=== PATIENT | female | born 1970 | race Caucasian/White ===

== ENCOUNTER 2017-05-26 08:18 | Emergency (ER) | payer BC ==
[2017-05-26] MEDS ORDERED: Ketorolac Tromethamine 30 MG/ML VIAL ONE (09:31)
[2017-05-26] MEDS ORDERED: Ondansetron HCl/PF 4 MG/2 ML Vial ONE (09:31)
[2017-05-26 09:49] LABS: ALT (SGPT) 29 U/L (8-55); AST (SGOT) 25 U/L (5-34); Albumin 4.2 g/dL (3.5-5.0); Alkaline Phosphatase 74 U/L (40-150); Anion Gap 16 mmol/L (10-20); BUN (Urea Nitrogen) 9 mg/dL (7.0-18.7); Bilirubin, Total 0.5 mg/dL (0.2-1.2); Calc. Creatinine Clearance 0 mL/min (70-130); Calcium 9.2 mg/dL (7.8-10.44); Carbon Dioxide 19 mmol/L (22-29); Chloride 112 mmol/L (98-107); Estimated GFR-MDRD 82; Globulin 3.1 g/dL (2.4-3.5); Glucose 94 mg/dL (70-105); Lipase 22 U/L (8-78); Potassium 4.2 mmol/L (3.5-5.1); Protein, Total 7.3 g/dL (6.0-8.3); Sodium 143 mmol/L (136-145)
[2017-05-26 09:50] LABS: Bilirubin Negative (Negative); Blood, Urine Trace (Negative); Clarity Clear (Clear); Glucose, Urine (Dipstick) Negative (Negative); Leukocyte Negative (Negative); Nitrite Negative (Negative); Protein, Urine (Dipstick) Negative (Neg-Trace); Urobilinogen 0.2 mg/dL (0.2-1.0)
[2017-05-26 09:55] LABS: Specific Gravity, Urine 1.001 (1.002-1.036)
[2017-05-26 09:57] LABS: White Blood Cell (WBC) Count 12.1 thou/uL (4.8-10.8)
[2017-05-26 09:58] LABS: #Basophils 0.1 thou/uL (0.0-0.2); #Eosinphils 0.2 thou/uL (0.0-0.7); #Lymphocytes 2.1 thou/uL (1.20-3.40); #Monocytes 0.7 thou/uL (0.11-0.59); #Neutrophils 9.1 thou/uL (1.40-6.50); %Basophils 0.6 % (0.0-1.0); %Eosinophils 1.3 % (0.0-10.0); %Lymphocytes 17.3 % (21.0-51.0); %Monocytes 5.5 % (0.0-10.0); %Neutrophils 75.4 % (42.0-75.0); Hemoglobin 13.9 g/dL (12.0-16.0); Mean Corpuscular Hemoglobin 31.1 pg (27.0-31.0); Mean Corpuscular Volume 91.4 fL (81.0-99.0); Mean Platelet Volume 8.5 fL (7.4-10.4); Platelet Count 255 thou/uL (130-400); RBC Distribution Width 11.8 % (11.5-14.5); Red Blood Cell (RBC) Count 4.48 mill/uL (4.20-5.40)
[2017-05-26 10:01] LABS: Bacteria/HPF Rare-Few HPF (None Seen); RBC/HPF 0-3 HPF (0-3); WBC/HPF 0-3 HPF (0-3)
--- NOTE | 2017-05-26 12:52 | CT ---
CT ABDOMEN AND PELVIS WITHOUT CONTRAST: Multiple axial tomograms were obtained through the abdomen and pelvis without IV enhancement. Oral c ontrast was not given. HISTORY: Right flank pain. FINDINGS: Lung bases are clear. Liver, spleen, and pancreas appear unremarkable. The patient is post cholecystectomy. Adrenal glands are normal. Review of the kidneys reveals a 3-4 mm calculus at the right UVJ producing mild right obstructive dale nge. There are at least 2 small nonobstructing calculi in the lower pole collecting structures of the righ t kidney measuring up to 3 mm. No left side calculi identified. Bladder is distended and unremarkab le. Small bowel loops appear normal. Appendix appears normal. Scattered diverticula in the left colon. No evidence of diverticulitis. No adenopathy. IMPRESSION: 1. A 3-4 mm calculus at the right ureterovesical junction producing mild right hydronephrosis. 2. Nonobstructing calculi in the lower pole collecting structures of the right kidney. POS: [facility]
[2017-05-26] MEDS ORDERED: Sodium Chloride 0.9% 1,000 ML BAG ONE (14:19)
== END 2017-05-26 11:44 | disposition home or self-care (01) ==
LOC: MADERS 08:18
DX: N13.2 Hydronephrosis with renal and ureteral calculous obstruction (principal)
CPT/HCPCS: 74176; 80053; 81001; 82150; 83690; 85025; 87086; 96361; 96374; 96375; J1885; J2405; J7050